=== PATIENT | male | born 1960 | race Caucasian/White ===

== ENCOUNTER → 2018-02-22 07:23 | Outpatient (CLI) | payer OTHER, SELFPAY ==
[2018-02-22 10:40] LABS: Anion Gap 8 (5-15); BUN 17 mg/dL (7-18); BUN/Creat Ratio 16.7 RATIO (10-20); Calcium,Total 8.9 mg/dL (8.5-10.1); Chloride 106 mmol/L (98-107); Cholesterol 184 mg/dL (200); Creatinine, Serum 1.02 mg/dL (0.70-1.30); EST Glomerular Filtration Rate 80 mL/min (>60); Est Glom Filt Rate - Afr Amer 97 mL/min (>60); Glucose 101 mg/dL (74-106); High Density Lipoprotein 52 mg/dL; PSA,Total - Annual Screen 0.76 ng/mL (0.00-4.00); Potassium 4.2 mmol/L (3.5-5.1); Sodium Level 140 mmol/L (136-145); Triglycerides 97 mg/dL; Very Low Density Lipoprotein 19 mg/dL (5-40)
== END ==
PROVIDERS: Family Provider Family Medicine; PCP Family Medicine; Referring Provider Family Medicine; Visit Provider Family Medicine
DX: E78.00 Pure hypercholesterolemia, unspecified (principal); Z12.5 Encounter for screening for malignant neoplasm of prostate
CPT/HCPCS: 36415; 80048; 80061; 84153; G0103

== ENCOUNTER → 2023-01-02 | Outpatient (CLI) | payer OTHER, SELFPAY ==
[2023-01-02 07:14] LABS: Bacteria 0 SEEN /hpf (None Seen); Mucous, Urine 0 SEEN /hpf (<or=2+); Red Blood Cells-Urine 0 SEEN /hpf (0-5); Squamous Epithelial Cells - UA 0 SEEN /hpf (0-5); White Blood Cells 0 SEEN /hpf (0-5)
[2023-01-02 10:02] LABS: Absolute Lymphocyte Count 1.71 X10^3/uL (0.83-4.51); Absolute Neutrophil Count 2.7 X10^3/uL (2.0-7.7); Basophil# 0.07 X10^3/uL; Basophil% 1.3 % (0-1); Eosinophil# 0.22 X10^3/uL; Eosinophils% 4.2 % (0-5); Hematocrit 47.2 % (40-54); Hemoglobin 15.3 g/dL (13.0-16.5); Lymphocyte # 1.71 X10^3/ul (0.83-4.51); Lymphocyte % 32.9 % (19-41); Mean Corp Hgb Conc 32.4 g/dL (32-36); Mean Corpuscular Hgb 28.7 pg (27.0-32.0); Mean Corpuscular Volume 88.4 fL (80-94); Mean Platelet Vol. 9.9 fl (6.2-12.0); Monocyte% 9.6 % (0-10); NRBC Flagged by Analyzer 0 % (0-5); Neutrophil # 2.69 X10^3/uL (2.7-7.7); Neutrophil % 51.8 % (47-70); Platelet Count 244 K/mm3 (150-450); RBC Distribution Width SD 42.3 fl (35.1-43.9); Red Blood Count 5.34 M/mm3 (4.6-6.2); White Blood Count 5.2 K/mm3 (4.4-11.0)
[2023-01-02 10:09] LABS: Color, Urine Yellow (Yellow); Glucose, Dipstick Normal (Normal); Ketone-Dipstick Negative (Negative); Leukocyte Esterase-Dipstick Negative /ul (Negative); Nitrite-Dipstick Negative (Negative); Occult Blood-Urine Negative /ul (Negative); Protein-Dipstick Negative (Negative); Specific Gravity, Urine 1.015 (1.002-1.030); Urine Bilirubin Dipstick Negative (Negative); Urine Clarity Sl. Cloudy (Clear); Urine Urobilinogen Normal (Normal); Urine pH 6.5 (5.0 - 8.0)
[2023-01-02 10:26] LABS: AST(SGOT) 14 U/L (15-37); Alanine Aminotransfer ALT/SGPT 36 U/L (16-61); Albumin, Serum 3.5 g/dL (3.2-5.0); Alkaline Phosphatase 81 U/L (45-117); Anion Gap 5 (5-15); BUN 17 mg/dL (7-18); BUN/Creat Ratio 19.6 RATIO (10-20); Calcium,Total 9.1 mg/dL (8.5-10.1); Chloride 107 mmol/L (98-107); Cholesterol 189 mg/dL (200); Creatinine, Serum 0.87 mg/dL (0.70-1.30); EST Glomerular Filtration Rate 95 mL/min (>60); Est Glom Filt Rate - Afr Amer 115 mL/min (>60); Globulin 3.6 g/dL (2.2-4.2); Glucose 112 mg/dL (74-106); High Density Lipoprotein 47 mg/dL; PSA,Total - Annual Screen 0.98 ng/mL (0.00-4.00); Potassium 4.3 mmol/L (3.5-5.1); Protein, Total 7.1 g/dL (6.4-8.2); Sodium Level 138 mmol/L (136-145); Thyroid Stim Hormone (TSH) 1.83 uIU/mL (0.358-3.74); Triglycerides 75 mg/dL; Very Low Density Lipoprotein 15 mg/dL (5-40)
[2023-01-03 14:41] LABS: Hemoglobin A1c 6.2 % (3.8-5.6)
== END | disposition home or self-care (01) ==
PROVIDERS: PCP Family Medicine; Referring Provider Family Medicine; Visit Provider Family Medicine
DX: Z00.00 Encounter for general adult medical examination without abnormal findings (principal); R73.09 Other abnormal glucose; Z12.5 Encounter for screening for malignant neoplasm of prostate
CPT/HCPCS: 80053; 80061; 81001; 83036; 84153; 84443; 85025; G0103

== ENCOUNTER 2023-01-24 12:31 | Day surgery (SDC) | payer OTHER, SELFPAY ==
[2023-01-24] VITALS (8 sets, daily range): BP systolic 113–149; BP diastolic 77–90; PULSE 48–59; RESP 16; TEMP 36.1–36.8; O2SAT 96–99; BMI 32.7
--- NOTE | 2023-01-24 | IMM_PTH ---
PATIENT: DONOVAN TORRE LOC: EN U#:[id number] AGE/SX: 62/M ROOM: RE01/24/[address]: Dr. Haris Del Valle MD : 1960 BED: DIS: 01/24/2023 SPEC #: [id number] RECD: 01/26/23 13:15 STATUS: YING RECharo #: [id number] AMRITA: 01/24/23 00:[address]: Haris Del Valle DEPT: IMMUNOHISTOCHEMISTRY RECD BY: Chloé Andrade ENTERED: 01/26/23 13:17 SP TYPE: IMMUNO OTHR DR: Dr. Renny Maldonado MD Tissues: B - Rectum, NOS Procedures: CD34 (add) Vimentin (add) SMM (add) Smooth Muscle Actin S-100 (add) PHYSICIAN & INSTITUTION [place] [id number] SPECIMEN INFORMATION: Tissue Source: Rectal polyp Clinical Info: Screening for colon cancer Specimen Number: [id number] CPT code: 99721 x1, 63452 x4 METHODOLOGY: Deparaffinized sections of prefer/formalin-fixed tissue or PAP/DQ stained slides are incubated with monoclonal/polyclonal antibodies/oligonucleotide probes. Localization is made via biotin free immunoperoxidase method. Appropriate controls are performed and reacted as expected. Results on target cell population are indicated in the following table: RESULTS: ANTIBODY / CLONE RESULT Block B Actin (1A4) negative Vimentin (V9) negative CD34 (QBEnd-10) negative Myosin (simms1) negative S-100 (4C4.9) negative These tests were developed and their performance characteristics determined by [facility]. They may not have been cleared or approved by the U.S. Food and Drug Administration. The FDA has determined that such clearance or approval is not necessary. The above immunohistochemical/dualISH markers are ordered and reviewed by the Pathologist. INTERPRETATION: Rectal polyp, biopsy: One benign mucosal polyp. One tubular adenoma. AM:devora 01/29/2023
[2023-01-24] MEDS: Lactated Ringers 1,000 ML 15 ML IV (13:13)
--- NOTE | 2023-01-24 13:30 | COLBX_PTH ---
PATIENT: DONOVAN TORRE LOC: EN U#:[id number] AGE/SX: 62/M ROOM: RE01/24/[address]: Dr. Haris Del Valle MD : 1960 BED: DIS: 01/24/2023 SPEC #: [id number] RECD: 01/24/23 18:34 STATUS: YING EFREN #: [id number] AMRITA: 01/24/23 13:[address]: Haris Del Valle DEPT: SURGICAL PATHOLOGY RECD BY: Nanci Lancaster ENTERED: 01/25/23 10:50 SP TYPE: COLON BX OTHR DR: Dr. Renny Maldonado MD Tissues: A - Cecum, NOS B - Rectum, NOS C - Transverse colon D - Sigmoid colon biopsy Procedures: Surgery Specimen Level IV HEADER OPERATION: Colonoscopy with polypectomy, CLIP application PRE-OP DIAGNOSIS: Screening for colon cancer TISSUE SUBMITTED: A - Cecal polyp, B - Rectal Polyp, C - Transverse polyp, D - Sigmoid polyp MICROSCOPIC DIAGNOSIS A. Cecal polyp, biopsy: Tubular adenoma. B. Rectal polyp, biopsy: Tubular adenoma (one fragment) Benign mucosal polyp (one fragment). See Comment. C. Transverse colon polyp, biopsy: Tubular adenoma. D. Sigmoid colon polyp, biopsy: Fragments of tubular adenoma. AM:devora 01/26/2023 COMMENT B. Immunohistochemistry ([id number]) supports the above diagnosis. MICROSCOPIC DESCRIPTION Slides are reviewed. GROSS DESCRIPTION A - Received in fixative is one container labeled with the patient's name and designated cecal polyp. The specimen consists of a polypoid fragment of bravo tissue measuring 1.3 x 1.0 x 1.0 cm. The specimen is trisected and totally submitted in one cassette. B - Received in fixative is one container labeled with the patient's name and designated rectal polyp. The specimen consists of two irregular fragments of light bravo soft tissue that in aggregate measure 1.2 x 0.5 x 0.2 cm. The specimen is totally submitted in one cassette. C - Received in fixative is one container labeled with the patient's name and designated transverse polyp. The specimen consists of one irregular fragment of light bravo soft tissue that measures 0.5 x 0.5 x 0.1 cm. The specimen is totally submitted in one cassette. D - Received in fixative is one container labeled with the patient's name and designated sigmoid polyp. The specimen consists of two irregular fragments of light bravo soft tissue that in aggregate measure 1.5 x 0.7 x 0.3 cm. The specimen is totally submitted in one cassette. / AM:devora 01/25/2023 TC:3 CPT: 92214 x4
--- NOTE | 2023-01-24 13:44 | HP.PCM_ITS ---
HPI - General HPI Narrative DONOVAN TORRE, is a 62 M who presents for screening colonoscopy. Patient has never had a colonoscopy in the past. He denies any abdominal pain or blood in the stool. He has no family history of colon cancer. [facility] Medical History (Updated 01/24/23 @ 13:[address] Haris Del Valle MD) History of renal disease Non-smoker Wears glasses Home Medications NK 01/22/23 [History Last Taken Unknown] Allergy/AdvReac Type Severity Reaction Status Date / Time Penicillins Allergy Intermediate Hives Verified 01/24/23 12:56 Surgical History (Updated 01/22/23 @ 10:29 by Alessandra Hartman) History of arthroscopic knee surgery Social History Smoking Status: Never smoker Past Medical/Surgical History Planned Operation Planned Operative Procedure/s: COLONOSCOPY Previous Hospitalizations/Surgeries HX Hospitalizations: No Any Problems With Anesthesia: No You/Your Family Experience Fever (Hyperthermia) With Anes: No Cholinesterase deficiency: No Cardiovascular Hx Hypertension: No Respiratory Hx Sleep Apnea: No Hx Respiratory Tract Infection/Cold (presently): No Do You Snore Loudly (louder than talking or can be heard): No Do You Often Feel Tired/ Fatigued/ Sleepy Dring Daytime?: No Has Anyone Observed You Stop Breathing During Sleep?: No Result (for STOP score): Negative Smoking Status: Never smoker Neurological Does patient have nerve stimulator: No Miscellaneous Recent Exposure to Contagious Disease: No Allergies Penicillins Allergy (Intermediate, Verified 01/24/23 12:56) Hives Discharge Is Pt Admitted From a Penitentiary, or a Senior Living: No Who Could Help: SCOTT- After D/C, Where Do you Plan to Go: Return Home Vital Signs Vital Signs Vital Signs: 01/24/23 12:59 01/24/23 12:59 Temperature 97.0 F L Temperature Source Temporal Pulse Rate 56 L Respiratory Rate 16 Respiratory Pattern Normal Blood Pressure 146/77 H Blood Pressure Mean 100 Blood Pressure Source Monitor Blood Pressure Position Semi-Fowlers Blood Pressure Location Right Arm Pulse Ox 99 Oxygen Delivery Method Room Air Weight Weight: 241 lb 2.971 oz Body Mass Index (BMI) 32.7 Physical Exam Const alert and oriented x3 HEENT normocephalic Eyes PERRL Resp normal respiratory effort and normal air movement Cardio regular rate and regular rhythm GI soft to palpation, non-tender and non-distended Extremity normal to inspection Assessment & Plan Assessment/Plan (1) Screen for colon cancer: PLAN: I explained endoscopy in detail to the patient. I explained the risks including but not limited to stroke or heart attack with anesthesia, perforation of the GI tract, bleeding, infection. I explained that any of these could necessitate further emergency surgery. The patient understands and all questions were answered sufficiently. The patient wishes to proceed with procedure. Harsi Del Valle MD Pager: [facility] [address] [place] [address] [address] [place] [address] Office: Surgery Risks - Colonoscopy Risks Include but are not Limited To: Risks include but are not limited to: Bleeding, perforation requiring further surgery, inability to complete colonoscopy requiring barium enema.
--- NOTE | 2023-01-24 14:47 | EKG12_ITS ---
Test Reason : POSTOP Blood Pressure : / mmHG Vent. Rate : 051 BPM Atrial Rate : 051 BPM P-R Int : 204 ms QRS Dur : 162 ms QT Int : 524 ms P-R-T Axes : 024 -47 137 degrees QTc Int : 482 ms Sinus bradycardia Left axis deviation Left bundle branch block Abnormal ECG No previous ECGs available Confirmed by ALISON DICK, GO ([id number]), assistant production editor MALIA BARAKAT ([id number]) on 01/26/2023 9:15:19 AM Referred By: Haris Del Valle Confirmed By:GO ROSAS MD
--- NOTE | 2023-01-24 15:13 | OP.CCLET_ITS ---
01/24/2023 Renny Maldonado [address] [place] [address] Re : Colonoscopy procedure for Irais Cervantes Dear Dr. Maldonado This procedure was performed on Tuesday, January 24, 2023. My impressions and recommendations are as follows: Impressions : - Three medium polyps in the rectum, in the transverse colon and in the cecum, removed with a hot snare. Resected and retrieved. - One large polyp in the sigmoid colon, removed piecemeal using a hot snare. Resected and retrieved. - The examination was otherwise normal on direct and retroflexion views. Recommendations : - Discharge patient to home. - Resume previous diet. - Continue present medications. - Resume aspirin at prior dose in 2 days. - Repeat colonoscopy in 1 year for surveillance after piecemeal polypectomy. My findings are described in the full procedure note, which is enclosed. If I can be of further assistance, please feel free to contact me at Doctor phone number(s): , Work: . Sincerely, Haris Del Valle MD 01/24/2023 3:13:05 PM This report has been signed electronically.
--- NOTE | 2023-01-24 15:13 | OP.COLON_ITS ---
Patient Name: Irais Cervantes Procedure Date: 01/24/2023 1:48 PM Date of : 1960 Age: 62 Procedure: Colonoscopy Indications: Screening for colorectal malignant neoplasm Providers: Haris Del Valle MD Medicines: Monitored Anesthesia Care Patient Profile: This is a 62 year old male. Refer to note in patient chart for documentation of history and physical. Last Colonoscopy: none. The patient's first colonoscopy is today. Complications: No immediate complications. Procedure: Pre-Anesthesia Assessment: - Prior to the procedure, a History and Physical was performed, and patient medications and allergies were reviewed. The patient's tolerance of previous anesthesia was also reviewed. The risks and benefits of the procedure and the sedation options and risks were discussed with the patient. All questions were answered, and informed consent was obtained. Prior Anticoagulants: The patient has taken no anticoagulant or antiplatelet agents except for aspirin. After reviewing the risks and benefits, the patient was deemed in satisfactory condition to undergo the procedure. After I obtained informed consent, the scope was passed under direct vision. Throughout the procedure, the patient's blood pressure, pulse, and oxygen saturations were monitored continuously. The was introduced through the anus and advanced to the cecum, identified by appendiceal orifice and ileocecal valve. The colonoscopy was performed without difficulty. The patient tolerated the procedure well. The quality of the bowel preparation was good. The ileocecal valve, appendiceal orifice, and rectum were photographed. Scope In: 2:00:39 PM Scope Withdrawal Time 0 hours 32 minutes 26 seconds Scope Out: 2:36:04 PM Total Procedure Duration Time 0 hours 35 minutes 25 seconds Findings: Three polyps were found in the rectum, transverse colon and cecum. The polyps were medium in size. These polyps were removed with a hot snare. Resection and retrieval were complete. To prevent bleeding after the polypectomy, one hemostatic clip was successfully placed on the cecal polyp site. There was no bleeding at the end of the procedure. A large polyp was found in the sigmoid colon. The polyp was removed with a piecemeal technique using a hot snare. Resection and retrieval were complete. The exam was otherwise without abnormality on direct and retroflexion views. Impression: - Three medium polyps in the rectum, in the transverse colon and in the cecum, removed with a hot snare. Resected and retrieved. - One large polyp in the sigmoid colon, removed piecemeal using a hot snare. Resected and retrieved. - The examination was otherwise normal on direct and retroflexion views. Recommendation: - Discharge patient to home. - Resume previous diet. - Continue present medications. - Resume aspirin at prior dose in 2 days. - Repeat colonoscopy in 1 year for surveillance after piecemeal polypectomy. Procedure Code(s): --- Professional --- 35498, 33, Colonoscopy, flexible; with removal of tumor(s), polyp(s), or other lesion(s) by snare technique Diagnosis Code(s): --- Professional --- Z12.11, Encounter for screening for malignant neoplasm of colon D12.8, Benign neoplasm of rectum D12.3, Benign neoplasm of transverse colon (hepatic flexure or splenic flexure) D12.0, Benign neoplasm of cecum D12.5, Benign neoplasm of sigmoid colon CPT copyright 2021 [employer]. All rights reserved. The codes documented in this report are preliminary and upon dish room worker review may be revised to meet current compliance requirements. Haris Del Valle MD 01/24/2023 3:13:05 PM This report has been signed electronically. Number of Addenda: 0 Note Initiated On: 01/24/2023 1:48 PM
[2023-01-24 15:43] LABS: Troponin-I HS 14 pg/mL (3.0-78.0)
== END 2023-01-24 16:16 | disposition home or self-care (01) ==
PROVIDERS: Anesthesiology; PCP Family Medicine; Referring Provider Surgery; Visit Provider Surgery
PROC: 0DJD8ZZ Inspection of Lower Intestinal Tract, Via Natural or Artificial Opening Endoscopic (ICD-10-PCS; CPT 45378; principal; 2023-01-24 13:25)
DX: Z12.11 Encounter for screening for malignant neoplasm of colon (principal); K63.5 Polyp of colon; K62.1 Rectal polyp
CPT/HCPCS: 45385; 84484; 88305; 88341; 88342; 93005; J7120; J2405

== ENCOUNTER → 2023-09-11 | Outpatient (CLI) | payer OTHER, SELFPAY ==
[2023-09-11 10:08] LABS: Absolute Lymphocyte Count 1.39 X10^3/uL (0.83-4.51); Absolute Neutrophil Count 2.5 X10^3/uL (2.0-7.7); Basophil# 0.05 X10^3/uL; Basophil% 1.1 % (0-1); Eosinophil# 0.17 X10^3/uL; Eosinophils% 3.7 % (0-5); Hematocrit 46.7 % (40-54); Hemoglobin 14.9 g/dL (13.0-16.5); Lymphocyte # 1.39 X10^3/ul (0.83-4.51); Lymphocyte % 30.5 % (19-41); Mean Corp Hgb Conc 31.9 g/dL (32-36); Mean Corpuscular Volume 87.8 fL (80-94); Mean Platelet Vol. 10.2 fl (6.2-12.0); Monocyte# 0.41 X10^3/uL; NRBC Flagged by Analyzer 0 % (0-5); Neutrophil # 2.52 X10^3/uL (2.7-7.7); Neutrophil % 55.5 % (47-70); Platelet Count 242 K/mm3 (150-450); RBC Distribution Width CV 13.5 % (11.6-14.6); RBC Distribution Width SD 43.4 fl (35.1-43.9); Red Blood Count 5.32 M/mm3 (4.6-6.2); White Blood Count 4.6 K/mm3 (4.4-11.0)
[2023-09-11 10:21] LABS: AST(SGOT) 8 U/L (15-37); Alanine Aminotransfer ALT/SGPT 25 U/L (16-61); Albumin, Serum 3.7 g/dL (3.2-5.0); Alkaline Phosphatase 75 U/L (45-117); Anion Gap 6 (5-15); BUN 21 mg/dL (7-18); BUN/Creat Ratio 21.8 RATIO (10-20); Calcium,Total 9.3 mg/dL (8.5-10.1); Chloride 108 mmol/L (98-107); Cholesterol 161 mg/dL (200); Creatinine, Serum 0.96 mg/dL (0.70-1.30); EST Glomerular Filtration Rate 84 mL/min (>60); Est Glom Filt Rate - Afr Amer 102 mL/min (>60); Globulin 3.6 g/dL (2.2-4.2); Glucose 105 mg/dL (74-106); High Density Lipoprotein 56 mg/dL; Potassium 4.1 mmol/L (3.5-5.1); Protein, Total 7.3 g/dL (6.4-8.2); Sodium Level 137 mmol/L (136-145); Triglycerides 36 mg/dL; Very Low Density Lipoprotein 7 mg/dL (5-40)
[2023-09-11 11:22] LABS: Hemoglobin A1c 5.8 % (3.8-5.6)
== END | disposition home or self-care (01) ==
LOC: MFPLAB 08:16
PROVIDERS: PCP Family Medicine; Visit Provider Family Medicine
DX: R73.02 Impaired glucose tolerance (oral) (principal)
CPT/HCPCS: 36415; 80053; 80061; 83036; 85025

== ENCOUNTER → 2024-03-06 | Outpatient (CLI) | payer OTHER, SELFPAY ==
[2024-03-06 11:01] LABS: AST(SGOT) 16 U/L (15-37); Alanine Aminotransfer ALT/SGPT 29 U/L (16-61); Albumin, Serum 3.9 g/dL (3.2-5.0); Alkaline Phosphatase 82 U/L (45-117); Anion Gap 6 (5-15); BUN 16 mg/dL (7-18); BUN/Creat Ratio 17.7 RATIO (10-20); Calcium,Total 9.9 mg/dL (8.5-10.1); Chloride 107 mmol/L (98-107); EST Glomerular Filtration Rate 90 mL/min (>60); Est Glom Filt Rate - Afr Amer 109 mL/min (>60); Globulin 3.8 g/dL (2.2-4.2); Glucose 101 mg/dL (74-106); PSA,Total - Annual Screen 1.23 ng/mL (0.00-4.00); Potassium 4.2 mmol/L (3.5-5.1); Protein, Total 7.7 g/dL (6.4-8.2); Sodium Level 137 mmol/L (136-145)
== END | disposition home or self-care (01) ==
LOC: MFPLAB 09:00
PROVIDERS: PCP Family Medicine; Referring Provider Family Medicine; Visit Provider Family Medicine
DX: Z12.5 Encounter for screening for malignant neoplasm of prostate (principal); R73.02 Impaired glucose tolerance (oral)
CPT/HCPCS: 36415; 80053; 83036; 84153; G0103

== ENCOUNTER 2024-05-22 07:55 | Day surgery (SDC) | payer OTHER, SELFPAY ==
[2024-05-22] VITALS (8 sets, daily range): BP systolic 96–135; BP diastolic 59–77; PULSE 60–63; RESP 16–18; TEMP 36.2–37.1; O2SAT 94–98; BMI 32.1
--- NOTE | 2024-05-22 08:30 | PCM.PRE.AN2 ---
ASA Classification* ASA Classification ASA Classification: 2 Assessment & Plan Anesthesia* Anesthesia Assessment Anesthesia Assessment: Discussed sedation and/or anesthesia options, risks, benefits, and alternatives with patient/parents/legal guardian/POA. Questions invited. The patient/parents/legal guardian/POA seems to understand and agrees to proceed with anesthesia plan. Reviewed the physical assessment, medical history, allergy history and patient home medications list prior to surgery/procedure/anesthetic and documented any changes. Performed airway and anesthesia risk assessments. Anesthesia Type Anesthesia Type: MAC History Source History Obtained from:: Patient and Chart Anesthesia Focused Assessment* Temperature: 97.7 F Pulse Rate: 63 Blood Pressure: 135/76 Respiratory Rate: 18 Pulse Ox: 96 Oxygen Delivery Method: Room Air Airway Assessment Mouth opens: >3 cm Mallampati Score: IV Teeth Condition: Caps/Crowns (Patient has one cap-it is tight.) Neck Range of motion (ROM): Limited ROM (Somewhat decreased extension) Focused Labs Anesthesia Preop lab: CBC WBC 4.6 K/mm3 (4.4-11.0) 09/11/23 08:17 09/11/23 RBC 5.32 M/mm3 (4.6-6.2) 09/11/23 08:17 09/11/23 Hgb 14.9 g/dL (13.0-16.5) 09/11/23 08:17 09/11/23 Hct 46.7 % (40-54) 09/11/23 08:17 09/11/23 Plt Count 242 K/mm3 (150-450) 09/11/23 08:17 09/11/23 CHEMISTRY Potassium 4.2 mmol/L (3.5-5.1) 03/06/24 09:01 03/06/24 Sodium 137 mmol/L (136-145) 03/06/24 09:01 03/06/24 BUN 16 mg/dL (7-18) 03/06/24 09:01 03/06/24 Creatinine 0.90 mg/dL (0.70-1.30) 03/06/24 09:01 03/06/24 Glucose 101 mg/dL (74-106) 03/06/24 09:01 03/06/24 TSH 1.83 uIU/mL (0.358-3.74) 01/02/23 07:11 01/02/23 COAG Pre-Assessment Diagnosis/Proposed Procedure Planned Operative Procedure(s): COLONOSCOPY-OA Anesthesia History 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 When Was Last Pacemaker Check QUESTION #4 FULL TEXT: You/Your Family Experience fever (hyperthermia) with Anesthesia Last Oral Intake Last Oral intake: Last Oral Intake NPO since 04:00 05/22/24 08:11 Meds taken in AM with sips of No 05/22/24 08:11 water? 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 Female No 05/20/24 10:32 HX of Motion Sickness No 05/20/24 10:32 HX of N/V After Surgery No 05/20/24 10:32 Non-Smoker Yes 05/20/24 10:32 Duration of Surgery greater No 05/20/24 10:32 than 60 minutes Number of Risk Factors 1 05/20/24 10:32 PONV Score Low Risk 05/20/24 10:32 Height & Weight Height & Weight: Anesthesia: Height & Weight Height 6 ft 05/22/24 08:11 Weight: 107.4 kg 05/22/24 08:11 Body Mass Index (BMI) 32.1 05/22/24 08:11 Respiratory Assessment Respiratory Assessment - floor inspector: Respiratory Tract Infection Hx - floor inspector Hx Respiratory Tract Infection No 05/20/24 10:32 STOP Sleep Apnea STOP Sleep Apnea - floor inspector: STOP Sleep Apnea - floor inspector Hx Hypertension No 05/20/24 10:32 Hx Sleep Apnea No 05/20/24 10:32 CPAP BIPAP Do you snore loudly (louder No 05/20/24 10:32 than talking or can be heard Do you often feel tired/ No 05/20/24 10:32 fatigued/ sleepy during daytime? Has anyone observed you stop No 05/20/24 10:32 breathing during sleep? STOP Results Negative 05/20/24 10:32 QUESTION #5 FULL TEXT : Do you snore loudly (louder than talking or can be heard through closed doors)? 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 Specify any problems Hx of Preganancy in last 3 N/A 05/20/24 10:32 Months Nurse Filling Out Transfusion VCHRISTIN 05/20/24 10:32 & Questions: Date: 05/20/24 05/20/24 10:32 Time: 10:33 05/20/24 10:32 Patient unable to answer at this time (ie. 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) Non-smoker Wears glasses History of renal disease Home Medications ?Medication ?Instructions ?Recorded ?Last Taken ?Type NK 01/22/23 Unknown History Allergy/AdvReac Type Severity Reaction Status Date / Time Penicillins Allergy Intermediate Hives Verified 05/22/24 08:11 Family History Grandfather Prostate cancer Surgical History Hx of colonoscopy History of arthroscopic knee surgery Social History household members: spouse current occupational status: employed Smoking Status: Never smoker alcohol intake: never substance use type: does not use Review of Systems (Anesthesia) ROS Narrative System reviewed and no additional complaints, except as documented.
--- NOTE | 2024-05-22 08:55 | H&P.OPEN ---
HPI - General HPI Narrative DONOVAN TORRE, is a 64 M who presents for surveillance colonoscopy. He had a colonoscopy 1 year ago and several large polyps were removed in piecemeal fashion. He denies any abdominal pain or blood in the stool. [facility] Medical History (Updated 05/22/24 @ 08:[address] 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) Non-smoker Wears glasses History of renal disease Home Medications ?Medication ?Instructions ?Recorded ?Last Taken ?Type NK 01/22/23 Unknown History Allergy/AdvReac Type Severity Reaction Status Date / Time Penicillins Allergy Intermediate Hives Verified 05/22/24 08:11 Family History Grandfather Prostate cancer Surgical History Hx of colonoscopy History of arthroscopic knee surgery Social History household members: spouse current occupational status: employed Smoking Status: Never smoker alcohol intake: never substance use type: does not use Past Medical/Surgical History Planned Operation Planned Operative Procedure(s): COLONOSCOPY-OA Previous Hospitalizations/Surgeries HX Hospitalizations: No Any Problems With Anesthesia: No You/Your Family Experience Fever (Hyperthermia) With Anes: No Cholinesterase deficiency: No Cardiovascular Hx Hypertension: No Respiratory Hx Sleep Apnea: No Hx Respiratory Tract Infection/Cold (presently): No Do You Snore Loudly (louder than talking or can be heard): No Do You Often Feel Tired/ Fatigued/ Sleepy Dring Daytime?: No Has Anyone Observed You Stop Breathing During Sleep?: No Result (for STOP score): Negative Smoking Status: Never smoker Neurological Does patient have nerve stimulator: No Miscellaneous Recent Exposure to Contagious Disease: No Allergies Penicillins Allergy (Intermediate, Verified 05/22/24 08:11) Hives Discharge Is Pt Admitted From a [facility], or a Halfway: No After D/C, Where Do you Plan to Go: Return Home Vital Signs Vital Signs Vital Signs: 05/22/24 08:11 05/22/24 08:11 05/22/24 08:35 Temperature 97.7 F L 97.7 F L Temperature Source Oral Pulse Rate 63 63 Respiratory Rate 18 18 Respiratory Pattern Normal Blood Pressure 135/76 H 135/76 H Blood Pressure Mean 95 Blood Pressure Source Monitor Blood Pressure Position Semi-Fowlers Blood Pressure Location Left Arm Pulse Ox 96 96 Oxygen Delivery Method Room Air Room Air Weight Weight: 236 lb 12.423 oz Body Mass Index (BMI) 32.1 Physical Exam Const alert and oriented x3 HEENT normocephalic Eyes PERRL Resp normal respiratory effort and normal air movement Cardio regular rate and regular rhythm GI soft to palpation, non-tender and non-distended Extremity normal to inspection Assessment & Plan Assessment/Plan (1) Hx of colonic polyps: PLAN: I explained endoscopy in detail to the patient. I explained the risks including but not limited to stroke or heart attack with anesthesia, perforation of the GI tract, bleeding, infection. I explained that any of these could necessitate further emergency surgery. The patient understands and all questions were answered sufficiently. The patient wishes to proceed with procedure. Haris Del Valle MD Pager: [facility] [address] [place] [address] [address] [place] [address] Office: Surgery Risks - Colonoscopy Risks Include but are not Limited To: Risks include but are not limited to: Bleeding, perforation requiring further surgery, inability to complete colonoscopy requiring barium enema.
--- NOTE | 2024-05-22 09:00 | COLBX_PTH ---
PATIENT: IRAIS TORRE LOC: EN U#:[id number] AGE/SX: 64/M ROOM: RE05/22/[address]: Dr. Haris Del Valle MD : 1960 BED: DIS: 05/22/2024 SPEC #: [id number] RECD: 05/23/24 13:05 STATUS: YING EFREN #: [id number] AMRITA: 05/22/24 09:[address]: Haris Del Valle DEPT: SURGICAL PATHOLOGY RECD BY: Analisa Zuñiga ENTERED: 05/23/24 14:15 SP TYPE: COLON BX OTHR DR: Dr. Renny Maldonado MD Tissues: A - Rectum, NOS Procedures: Surgery Specimen Level IV HEADER OPERATION: Colonoscopy with polypectomy PRE-OP DIAGNOSIS: History of colonic polyps TISSUE SUBMITTED: A- Rectal polyp MICROSCOPIC DIAGNOSIS A. RECTUM, POLYP, BIOPSY:-TUBULOVILLOUS ADENOMA, MULTIPLE FRAGMENTS. MICROSCOPIC DESCRIPTION Slides are reviewed. GROSS DESCRIPTION Received in formalin labeled Irais Torre, and designated rectal polyp, are three bravo tissue fragments aggregating to 1.9 x 1.1 x 1.0 cm. Totally submitted as follows:Cassette Summary:A1-smaller fragment intactA2-two larger polypoid fragments bisected (one inked black, one inked blue) 05/23/2024 CPT:[id number]
--- NOTE | 2024-05-22 09:26 | OP.CCLET_ITS ---
05/22/2024 Renny Maldonado [address] [place] [address] Re : Colonoscopy procedure for Irais Cervantes Dear Dr. Maldonado This procedure was performed on April. My impressions and recommendations are as follows: Impressions : - One large polyp in the rectum, removed piecemeal using a hot snare. Resected and retrieved. - The examination was otherwise normal on direct and retroflexion views. Recommendations : - Discharge patient to home. - Resume previous diet. - Continue present medications. - Await pathology results. - Repeat colonoscopy in 1 year for surveillance after piecemeal polypectomy. My findings are described in the full procedure note, which is enclosed. If I can be of further assistance, please feel free to contact me at Doctor phone number(s): , Work: . Sincerely, Haris Del Valle MD 05/22/2024 9:26:03 AM This report has been signed electronically.
--- NOTE | 2024-05-22 09:26 | OP.COLON_ITS ---
Patient Name: Irais Cervantes Procedure Date: 05/22/2024 8:56 AM Date of : 1960 Age: 64 Procedure: Colonoscopy Indications: High risk colon cancer surveillance: Personal history of adenoma (10 mm or greater in size) Providers: Haris Del Valle MD Medicines: Propofol per Anesthesia Patient Profile: This is a 64 year old male. Refer to note in patient chart for documentation of history and physical. Last Colonoscopy: 1 year ago. Complications: No immediate complications. Estimated blood loss: Minimal. Procedure: Pre-Anesthesia Assessment: - Prior to the procedure, a History and Physical was performed, and patient medications and allergies were reviewed. The patient's tolerance of previous anesthesia was also reviewed. The risks and benefits of the procedure and the sedation options and risks were discussed with the patient. All questions were answered, and informed consent was obtained. Prior Anticoagulants: The patient has taken no anticoagulant or antiplatelet agents. After reviewing the risks and benefits, the patient was deemed in satisfactory condition to undergo the procedure. After I obtained informed consent, the scope was passed under direct vision. Throughout the procedure, the patient's blood pressure, pulse, and oxygen saturations were monitored continuously. The Colonoscope was introduced through the anus and advanced to the cecum, identified by appendiceal orifice and ileocecal valve. The colonoscopy was performed without difficulty. The patient tolerated the procedure well. The quality of the bowel preparation was good. Anatomical landmarks were photographed. Scope In: 9:06:46 AM Scope Withdrawal Time 0 hours 11 minutes 19 seconds Scope Out: 9:22:56 AM Total Procedure Duration Time 0 hours 16 minutes 10 seconds Findings: A large polyp was found in the rectum. The polyp was removed with a piecemeal technique using a hot snare. Resection and retrieval were complete. The exam was otherwise without abnormality on direct and retroflexion views. Impression: - One large polyp in the rectum, removed piecemeal using a hot snare. Resected and retrieved. - The examination was otherwise normal on direct and retroflexion views. Recommendation: - Discharge patient to home. - Resume previous diet. - Continue present medications. - Await pathology results. - Repeat colonoscopy in 1 year for surveillance after piecemeal polypectomy. Procedure Code(s): --- Professional --- 73229, Colonoscopy, flexible; with removal of tumor(s), polyp(s), or other lesion(s) by snare technique Diagnosis Code(s): --- Professional --- Z86.010, Personal history of colonic polyps D12.8, Benign neoplasm of rectum CPT copyright 2021 [employer]. All rights reserved. The codes documented in this report are preliminary and upon remote inpatient coder review may be revised to meet current compliance requirements. Haris Del Valle MD 05/22/2024 9:26:03 AM This report has been signed electronically. Number of Addenda: 0 Note Initiated On: 05/22/2024 8:56 AM
--- NOTE | 2024-05-22 09:34 | PCM.POST.ANE ---
Anesthesia: Postop Eval I Current Vital Signs Temperature: 97.2 F Pulse Rate: 60 Blood Pressure: 100/60 Respiratory Rate: 16 Pulse Ox: 96 Oxygen Delivery Method: Room Air Assessment Airway patent: Yes Spontaneous unlabored respirations: Yes Mental status: Asleep nausea: No Vomiting: No Anesthesia Complication: No Fluid Hydration Crystalloid volume administer (ml): 30 Total IV fluid infused: 30 Progress Note Anesthesia document: Postop Eval 1 completed: Yes
--- NOTE | 2024-05-22 22:26 | PCM.POSTANE2 ---
Anesthesia Postop Eval I Sum Postop Eval Completion status Anesthesia document: Postop Eval 1 completed: Yes Anesthesia Postop Eval I Summary Anesthesia Postop Eval I Summary: Anesthesia Postop Eval I: Assessment Summary Airway patent Yes 05/22/24 09:35 [email or web address] Spontaneous unlabored Yes 05/22/24 09:35 [email or web address] respirations Mental status Asleep 05/22/24 09:35 [email or web address] nausea No 05/22/24 09:35 [email or web address] Vomiting No 05/22/24 09:35 [email or web address] Anesthesia Postop Eval I: Fluid Summary Crystalloid volume administer 30 05/22/24 09:35 [email or web address] (ml) Colloids volume administered ( ml) Blood Product volume administered (ml) Total IV fluid infused 30 05/22/24 09:35 [email or web address] Anesthesia Postop Eval I: Summary Notes Anesthesia Complication No 05/22/24 09:35 [email or web address] Anesthesia Complication Comment: Post-operative progress note Anesthesia: Postop Eval II Evaluation Mental status: Awake and Calm Pain Level: 0 nausea: No Vomiting: No
== END 2024-05-22 10:26 | disposition home or self-care (01) ==
LOC: EN 07:55 → AC 07:56
PROVIDERS: PCP Family Medicine; Referring Provider Family Medicine; Visit Provider Surgery
PROC: 0DJD8ZZ Inspection of Lower Intestinal Tract, Via Natural or Artificial Opening Endoscopic (ICD-10-PCS; CPT 45378; principal; 2024-05-22 08:55)
DX: Z12.11 Encounter for screening for malignant neoplasm of colon (principal); Z86.0100 Personal history of colon polyps, unspecified; K62.1 Rectal polyp
CPT/HCPCS: 45385; 88305; A4216; J2405